=== PATIENT | female | born 1945 | race Caucasian/White ===

== ENCOUNTER → 2024-02-04 11:20 | Outpatient (REF) | payer MEDICARE, OTHER, SELFPAY | LOC: RAD 11:20 | PROVIDERS: ATTENDING PHYSICIAN Internal Medicine | DX: R06.09 Other forms of dyspnea (principal) | CPT/HCPCS: 71046 ==

== ENCOUNTER → 2025-03-20 10:21 | Outpatient (REF) | payer MEDICARE, OTHER, SELFPAY ==
[2025-03-20 11:08] LABS: % Basophils 0.5 % (0-2); % Eosinophils 2.4 % (0-6); % Immature Granulocytes 0.3 % (0-0.5); % Lymphocytes 24.6 % (20.5-51.1); % Monocytes 11.4 % (1.7-9.3); % Neutrophils 60.8 % (42.2-75.2); Absolute Eosinophils 0.1 10^3/uL (0-0.7); Absolute Lymphocytes 1.4 10^3/uL (1.2-3.4); Absolute Monocytes 0.7 10^3/uL (0.1-0.6); Absolute Neutrophils 3.5 10^3/uL (1.4-6.5); Hematocrit 37.9 % (37.0-47.0); Hemoglobin 12.8 g/dL (12.0-16.0); Mean Corp Hgb Conc. 33.8 g/dL (33.0-37.0); Mean Corpuscular Volume 91.8 fL (81.0-99.0); Mean Platelet Volume 9.7 fL (7.4-10.4); Nucleated Red Blood Cells % 0 %; Platelet Count 204 10^3/uL (130-400); Red Blood Cell Count 4.13 10^6/uL (4.20-5.40); Red Cell Dist. Width 13.5 % (11.5-14.5); White Blood Cell Count 5.8 10^3/uL (4.8-10.8)
[2025-03-20 11:15] LABS: INR 1.87; PT 21.7 Sec (11.4-14.6)
[2025-03-20 11:36] LABS: ALT (SGPT) 22 U/L (0-35); AST (SGOT) 30 U/L (14-36); Albumin 4.3 g/dl (3.5-5.0); Alkaline Phosphatase 61 U/L (38-126); Blood Urea Nitrogen 16 mg/dl (7-17); Calcium 9.2 mg/dl (8.4-10.2); Carbon Dioxide 26 mmol/L (22-30); Chloride 108 mmol/L (98-107); Glucose 106 mg/dl (70-99); Magnesium 2.4 mg/dl (1.6-2.3); Potassium 4.6 mmol/L (3.5-5.1); Sodium 139 mmol/L (135-145); Total Bilirubin 0.6 mg/dl (0.2-1.3); Total Protein 6.8 g/dl (6.3-8.2); eGFR > 60.00
[2025-03-20 17:09] LABS: Vitamin D, 25-OH*** 60.9 ng/mL (30-80)
== END ==
LOC: SDSPAT 10:21
PROVIDERS: ATTENDING PHYSICIAN Internal Medicine Cardiovascular Disease; FAMILY PHYSICIAN Family Medicine; OTHER PHYSICIAN Internal Medicine Cardiovascular Disease
DX: I48.19 Other persistent atrial fibrillation (principal); M81.0 Age-related osteoporosis without current pathological fracture
CPT/HCPCS: 36415; 75572; 80053; 82306; 83735; 84443; 85025; 85610; 86850; 86900; 86901; 93005; Q9967

== ENCOUNTER 2025-04-03 05:52 | Day surgery (SDC) | payer MEDICARE, OTHER, SELFPAY ==
[2025-03-20 12:19] VITALS: BMI 24.4
[2025-04-03] VITALS (12 sets, daily range): BP systolic 115–161; BP diastolic 61–92
[2025-04-03 07:02] LABS: INR 1.74; PT 20.5 Sec (11.4-14.6)
--- NOTE | 2025-04-03 09:09 | ITS.CL.ABL ---
[facility] - Ablation
Ablation
Procedure Report:
ELECTROPHYSIOLOGY ABLATION STUDY
DATE:: April 03, 2025�����������������������������REFERRING: Dr. Jacinto
INDICATION: Paroxysmal supraventricular tachycardia in the form of atrial fibrillation.��As above
HISTORY: See H and P.��As above
ANTIARRHYTHMIC DRUG: Sotalol
PRE-PROCEDURE ROLAND: No intracardiac thrombus on intracardiac ultrasound
PRESENTING RHYTHM: Sinus rhythm
'TIME-OUT':��called and confirmed.
SEDATION/ANESTHESIA:��provided via the anesthesia department using general anesthesia (LMA).
INTRAVENOUS/ARTERIAL ACCESS:
Right femoral venous - 10 Fr,
Left femoral venous - 8 Fr, 6 Fr
Left femoral arterial - 5 Fr
Ultrasound guidance for bilateral femoral vein access was utilized by me to obtain access with demonstration of normal anatomy
CHADS-VASC Score:
HAS-Bled Score
PROCEDURE:
1.��A decapolar CS catheter was placed within the CS for mapping and pacing.��This was also used as the reference catheter for the 3-D map.
2. The intracardiac ultrasound catheter was positioned in the RA to identify the FO for targeting of transseptal puncture, assist��in identification of the pulmonary vein ostia, monitoring pre and post ablation pulmonary vein flow velocities,
monitoring for 'bubble' formation during RF application as a sign of thermal injury,��and to monitor for pericardial effusion during mapping and ablation procedure.���Left atrial size, LV ejection fraction, and pulmonary vein flows were monitored
pre and post ablation procedure. The other valves were inspected and found to be free of significant regurgitation or stenosis.
3.��Half of the calculated heparin bolus was administered prior to the first transeptal puncture.��Transseptal puncture was performed to diagnose RA and LA pressure so that safety of LA mapping and ablation could be further assessed, and to access
the left atrium and pulmonary veins for mapping and ablation.��This entailed advancing an 8 Fr SL-1 sheath with dilator into the superior vena cava and withdrawing both (monitoring intracardiac ultrasound, fluoroscopy and tip pressure) with the tip
oriented toward the atrial septum.��The fossa ovalis was engaged (indicated by sudden displacement of the sheath tip as well as tenting of the fossa seen on intracardiac ultrasound).��Left atrial access required a pass with the Brockenbrough needle
extended.��Left atrial catheter position was confirmed by pressure monitoring (RA mean pressure 8 mm Hg and LA mean pressure 14 mm Hg), LA saturation (99%),��as well as fluoroscopy.��The sheath was advanced over the dilator and positioned in the
left atrium.��This procedure was repeated for the Agilis sheath.��The remainder of the calculated heparin bolus was administered and heparin was
infused to maintain ACT at 300 -350 seconds throughout the case.
4.��RA pacing was performed via the proximal decapolar poles and LA pacing was performed via the distal decapolr poles.
5. A quadrapolar catheter was first positioned at the His position for His Bundle recording which was tagged via the 3-D Navex sytem, and then passed to the RVA for RV pacing and recording.
6. The grid and Penta spline catheter placed in each of the LIPV, LSPV, RSPV and the RIPV.��
7.��Next, a 3-D map was created using Navex.���A 3-D reconstructed CT image was compared to the 3-D Navex map to assist in anatomic interpretation, mapping and ablation.��The CT image and the NavX image were fused.
8. A total of 50 lesions were given and all of in basket pose the 4 pulmonary veins with flower post to the fifth pulmonary vein and posterior wall roof and floor. Edges next block was confirmed in all 5 pulmonary veins as well as the roof
posterior wall and floor
9. Normal sinus node and AV node function noted.
TOTAL FLOURO TIME: 10.1 minutes 114 mGy
TOTAL RF DURATION: 0 minutes
REVERSAL OF HEPARIN: 40 mg of protamine, slow IV administration
COMPLICATIONS:
None
Intracardiac US shows no pericardial effusion post ablation.
SUMMARY:��
Complex left atrial mapping and ablation.
Isolation of all 5 pulmonary veins and posterior wall scar.
RECOMMENDATIONS:
1. Ambulate in 4 hours
2. Continue anticoagulation
3.��Discontinue sotalol
4.��Consider same-day discharge
Copy to: Dr. Jacinto
--- NOTE | 2025-04-03 14:09 | W.PN.UPDATE ---
Update Note
Progress Note Update
79 yo WF s/p PVI (same day). She denies cp, sob, ruiz diet, voiding, amb w/o dizziness, EKG SR with prolonged QTc, b/l groins c/d/i no HT, soft. She will continue warfarin with higher dose on sunday night as INR 1.7 today. She will stop sotalol and
continue metoprolol. Activity restrictions reviewed. She will f/u Dr. Stubbs in 2 mo. She is for d/c home after 2pm.
[2025-04-06 07:45] LABS: ACT-LR - POC > 397 Seconds (116-155)
== END 2025-04-03 14:00 | disposition home or self-care (01) ==
LOC: CATH 05:52
PROVIDERS: ATTENDING PHYSICIAN Internal Medicine Cardiovascular Disease; FAMILY PHYSICIAN Family Medicine; OTHER PHYSICIAN Internal Medicine Cardiovascular Disease
DX: I48.19 Other persistent atrial fibrillation (principal); I47.19 Other supraventricular tachycardia; R06.09 Other forms of dyspnea; I10 Essential (primary) hypertension; E78.5 Hyperlipidemia, unspecified; G47.33 Obstructive sleep apnea (adult) (pediatric); F41.9 Anxiety disorder, unspecified; F32.A Depression, unspecified; M81.0 Age-related osteoporosis without current pathological fracture; Z79.01 Long term (current) use of anticoagulants
CPT/HCPCS: C1732; C1894; C1769; C1892; C1759; 85347; 85610; 86900; 86901; 93005; 93656; 93657; C1733; C1766

== ENCOUNTER → 2025-06-02 09:36 | Outpatient (REF) | payer MEDICARE, OTHER, SELFPAY | LOC: DHSLP 09:36 | PROVIDERS: ATTENDING PHYSICIAN Internal Medicine; FAMILY PHYSICIAN Family Medicine | DX: G47.33 Obstructive sleep apnea (adult) (pediatric) (principal) | CPT/HCPCS: 95800 ==